=== PATIENT | female | born 1980 | race Caucasian/White ===

== ENCOUNTER 2022-01-14 03:01 | Emergency (ER) | payer SELFPAY ==
[~2022-01-14] VITALS: Ht 175.3 cm; Wt 63.5 kg
--- NOTE | 2022-01-14 03:04 | NUR ---
Patient to [facility] chair to [facility] for evaluation. Side rails up. Report given to Crystal BLUNT(reg).
[2022-01-14 03:05] VITALS: BP_SYST 146
--- NOTE | 2022-01-14 03:27 | NUR ---
Urine HCG done, results negative.
--- NOTE | 2022-01-14 03:44 | NUR ---
ED MD WITH PT. 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 PT C/O RIGHT ARM AND RIGHT RIB PAIN. PT VSS STABLE. PT SPEAKING FULL SENTENCES. PT BEING COOPERATIVE. NO SIGNS OF DISTRESS AT THIS TIME
[2022-01-14] MEDS ORDERED: KETOROLAC TROMETHAMINE 60 MG/2 ML VIAL IM ONE (04:15)
--- NOTE | 2022-01-14 04:15 | NUR ---
AT PATIENT SIDE WITH PRIMARY RN. PT REFUSING TREATMENT. PT VERBALLY REFUSED PAIN MEDICATIONS. PT VERBALLY REFUSED X-RAY. PT VERBALLY DECLINED ANY FURTHER TREATMENTS. JAKE COLLINS WITNESSING REFUSAL.
--- NOTE | 2022-01-14 04:27 | NUR ---
JAKE REQUESTING BLOOD DRAW. SUGAR ON SCENE HAD A NEEDLE STICK WITH PT METH NEEDLE. PT PROVIDING VERBAL CONSENT FOR BLOOD DRAW.
--- NOTE | 2022-01-14 04:38 | NUR ---
PT NOW PROVIDING CONSENT FOR X-RAY AND EXAM BY MD. STOLL AT BEDSIDE
[2022-01-14 05:46] VITALS: BP_SYST 127
--- NOTE | 2022-01-14 05:50 | NUR ---
PT CLEARED FOR DC TO LONG-TERM. PT WAS PROVIDED DC INSTRUCTIONS. PT VERBALIZED UNDERSTANDING. ALL QUESTIONS ANSWERED. PT WAS PROVIDED PRESCRIPTION FOR PAIN IF NEEDED. [facility] PROVIDED MEDICAL CLEARANCE FORM. PT AMBULATORY PT IN STABLE CONDITION
[2022-01-15 08:06] LABS: HEPATITIS A AB, IgM Negative (Negative); HEPATITIS B CORE AB, IgM Negative (Negative); HEPATITIS B SURFACE AG Negative (Negative)
== END 2022-01-14 05:39 ==
LOC: SED 03:01
DX: S22.31XA Fracture of one rib, right side, initial encounter for closed fracture (principal); S29.011A Strain of muscle and tendon of front wall of thorax, initial encounter; Z88.5 Allergy status to narcotic agent; Z79.899 Other long term (current) drug therapy; Y04.8XXA Assault by other bodily force, initial encounter; Y93.89 Activity, other specified; Y92.89 Other specified places as the place of occurrence of the external cause; Y99.8 Other external cause status
CPT/HCPCS: 36415; 71045; 71100; 80074; 81025; 99284; J1885